=== PATIENT | female | born 1930 | race Caucasian/White ===

== ENCOUNTER 2017-04-06 09:30 | Emergency (ER) | payer MEDICARE, BC ==
[2017-04-06 09:40] VITALS: BP 137/70
--- NOTE | 2017-04-06 10:08 | ED ---
Neck Pain - HPI Summary HPI Summary: 86 yr old female with complaint left trapezius pain, and left side neck pain. Onset of pain was two days ago. She specifically recalls turning onto her left side while in bed and feeling pain in the left trapezius muscle. The pain is 5/ 10, worse with trying to turn her head, and look up. She states she had to sit up in order to turn herself back over onto her right side. She denies numbness , tingling in the arms. She states she is planning a dinner for 8 people this evening and she is very busy. - History of Current Complaint Chief Complaint: UCUpperExtremity Stated Complaint: LEFT SHOULDER PAIN Time Seen by Provider: 04/06/17 09:39 Hx Last Menstrual Period: n/a - Allergies/Home Medications Allergies/Adverse Reactions: Allergies Allergy/AdvReac Type Severity Reaction Status Date / Time Aspirin Allergy Anaphylatic Verified 04/06/17 09:40 Shock Home Medications: Home Medications Cholecalciferol [Vitamin D] 1,000 unit PO DAILY 04/06/17 [History Confirmed ] PMH/Surg Hx/FS Hx/Imm Hx Previously Healthy: Yes Cardiovascular History: Reports: Hx Hypertension - Surgical History Surgery Procedure, Year, and Place: spinal fusions X 2 in 2012 Infectious Disease History: No Infectious Disease History: Denies: Traveled Outside the [place] in Last 30 Days - Family History Known Family History: Positive: Hypertension Negative: Cardiac Disease, Diabetes - Social History Alcohol Use: None Substance Use Type: Reports: None Smoking Status (MU): Former Smoker Type: Cigarettes Review of Systems Constitutional: Negative Eyes: Negative Positive: Other - left trapezius pain, left side neck pain Negative: Weakness, Numbness All Other Systems Reviewed And Are Negative: Yes Physical Exam Triage Information Reviewed: Yes Vital Signs On Initial Exam: Initial Vitals Temp Pulse Resp BP Pulse Ox 98.5 F 86 16 137/70 98 04/06/17 09:33 04/06/17 09:33 04/06/17 09:33 04/06/17 09:33 04/06/17 09:33 Vital Signs Reviewed: Yes Appearance: Positive: Well-Appearing, No Pain Distress, Well-Nourished Skin: Positive: Warm, Skin Color Reflects Adequate Perfusion, Other - no rash Head/Face: Positive: Normal Head/Face Inspection Eyes: Positive: EOMI Neck: Positive: Tenderness @ - left trapezius muscle in the middle. Respiratory/Lung Sounds: Positive: Clear to Auscultation Cardiovascular: Positive: RRR. Negative: Murmur Musculoskeletal: Positive: Other - left shoulder full rang eof motion without any pain on palpation of the right left shoulder. Neurological: Positive: Normal, Sensory/Motor Intact, Alert, Oriented to Person Place, Time, CN Intact II-III, Normal Gait, Speech Normal Psychiatric: Positive: Normal - Sade Coma Scale Best Eye Response: 4 - Spontaneous Best Motor Response: 6 - Obeys Commands Best Verbal Response: 5 - Oriented Diagnostics - Vital Signs Vital Signs Temp Pulse Resp BP Pulse Ox 04/06/17 09:33 98.5 F 86 16 137/70 98 - Laboratory Lab Statement: Any lab studies that have been ordered have been reviewed, and results considered in the medical decision making process. - Radiology cervical spine Xray Interpretation: Positive (See Comments) - DJD Radiology Interpretation Completed By: Radiologist Neck Course/Dx - Course Course Of Treatment: 86 yr old female with DJD neck and wrye neck symptoms. She has alleve and takes this at home without problems. - Diagnoses Provider Diagnoses: DJD (degenerative joint disease) of cervical spine, Wryneck Discharge - Discharge Plan Condition: Good Disposition: HOME Patient Education Materials: Spasmodic Torticollis (ED), Neck Pain (ED) Referrals: Cuco Riddle MD [Primary Care Provider] - 3 Days
--- NOTE | 2017-04-06 10:21 | RAD ---
HISTORY: Left-sided pain COMPARISONS: February 08, 2013 VIEWS: 5, Frontal, lateral, open-mouth odontoid, and bilateral oblique views of the cervical spine. FINDINGS: The cervical spine is visualized from the skull base through C7-T1. ALIGNMENT: There is straightening with mild reversal of the normal cervical lordosis. VERTEBRAL BODIES: There is extensive anterolateral marginal osteophyte formation most pronounced at C3-C4, C4-C5, C5-C6, and C6-C7. JOINTS: There is extensive diffuse uncovertebral and facet osteoarthritis. 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 On the oblique views, there is mild diffuse left neural foraminal narrowing and moderate right neural foraminal narrowing INTERVERTEBRAL DISCS: There is diffuse loss of intervertebral disc height. SOFT TISSUE: The prevertebral soft tissues are normal. OTHER: The skull base is normal. The lung apices are clear. IMPRESSION: MODERATE TO ADVANCED DEGENERATIVE DISC DISEASE AND OSTEOARTHRITIS.
[2017-04-06] MEDS ORDERED: Cyclobenzaprine TAB* 10 MG PO ONE (10:43)
== END 2017-04-06 10:53 | disposition home or self-care (01) ==
LOC: UCCORT 09:30
DX: M47.9 Spondylosis, unspecified (principal); M43.6 Torticollis; Z87.891 Personal history of nicotine dependence; I10 Essential (primary) hypertension; Z88.6 Allergy status to analgesic agent
CPT/HCPCS: 72050; 99212; A9270-GY; G0463

== ENCOUNTER 2018-03-30 16:53 | Emergency (ER) | payer MEDICARE, BC ==
[2018-03-30 17:11] VITALS: BP 179/74
--- NOTE | 2018-03-30 17:15 | UC ---
General HPI - HPI Summary HPI Summary: Patient states that yesterday afternoon she had a sudden onset of feeling like something punched her in the left shoulder and arm area as well as along the sides of her neck/upper back. She describes the pain as being a combination of muscle and joint pain. She also notes that she has issues with chronic left knee pain and that feels a little worse now as well. She denies having any overuse. She denies any associated sweating nausea or shortness of breath. She denies any numbness or tingling to her arms or legs and she denies any known history of tick bite. She did take an Aleve last evening and she notes that gave her some temporary relief. She denies any history or heart or lung disease. She states that she followed up with Dr. Garsia in October of this year and had extensive routine labs all of which were normal. She had a second routine visit recently which was also normal. She denies coronary artery disease but admits to having had a stress test "1 million years ago" that was unremarkable. Her past medical history is significant for hypertension, high cholesterol, spinal stenosis. pt denies any chest pain or exertional changes.. Pt wonders if it is stress. - History of Current Complaint Hx Obtained From: Patient Hx Last Menstrual Period: n/a Onset/Duration: Sudden Onset Timing: Constant Aggravating: nothing Associated Signs & Symptoms: Positive: Back Pain - upper. Negative: Nausea, SOB <Loan Lovett - Last Filed: 03/30/18 17:57> <oRgerio Liu - Last Filed: 03/30/18 20:40> - History of Current Complaint Stated Complaint: BODY ACHES Time Seen by Provider: 03/30/18 17:08 - Allergy/Home Medications Allergies/Adverse Reactions: Allergies Allergy/AdvReac Type Severity Reaction Status Date / Time aspirin Allergy Anaphylatic Verified 03/30/18 17:14 Shock PMH/Surg Hx/FS Hx/Imm Hx - Additional Past Medical History Additional PMH: spinal stenosis Endocrine History: Dyslipidemia Cardiovascular History: Hypertension - Surgical History Surgical History: Yes Surgery Procedure, Year, and Place: spinal fusions X 2 in 2012 - Family History Known Family History: Positive: Hypertension Negative: Cardiac Disease, Diabetes - Social History Occupation: Retired Lives: Alone Alcohol Use: None Substance Use Type: None Smoking Status (MU): Former Smoker Type: Cigarettes When Did the Patient Quit Smoking/Using Tobacco: 25 YRS AGO - Immunization History Most Recent Tetanus Shot: 2008 Vaccination Up to Date: Yes <Loan Lovett - Last Filed: 03/30/18 17:57> Review of Systems Constitutional: Negative Skin: Negative Eyes: Negative ENT: Negative Respiratory: Negative Cardiovascular: Negative Gastrointestinal: Negative Genitourinary: Negative Motor: Negative Neurovascular: Negative Musculoskeletal: Arthralgia, Other: - acute pain LUE, neck, upper back Neurological: Negative Psychological: Negative Is Patient Immunocompromised?: No All Other Systems Reviewed And Are Negative: Yes <Loan Lovett - Last Filed: 03/30/18 17:57> Physical Exam Triage Information Reviewed: Yes Appearance: Well-Appearing Vital Signs Reviewed: Yes Eyes: Positive: Conjunctiva Clear ENT: Positive: Pharynx normal, TMs normal. Negative: Nasal congestion, Nasal drainage Neck: Positive: Supple, No Lymphadenopathy, Other: - mildly tender L trapezius. No jvd. spine non tender.. Negative: Nuchal Rigidity Respiratory: Positive: Chest non-tender, Lungs clear, Normal breath sounds Cardiovascular: Positive: RRR, No Murmur, Pulses Normal Abdomen Description: Positive: Nontender, No Organomegaly, Soft Bowel Sounds: Positive: Present Musculoskeletal: Positive: ROM Intact, Other: - tender L bicep/tricep. Back is non tender. Large joints with no swelling or tenderness. Neurological: Positive: Alert, Other: - CN 2-12 grossly intact. s/v/m intact x4. Psychological: Positive: Normal Response To Family, Age Appropriate Behavior Skin Exam: Normal Skin: Negative: rashes <Loan Lovett - Last Filed: 03/30/18 17:57> Vital Signs: Initial Vital Signs Temp 100.3 F 03/30/18 17:05 Pulse 96 03/30/18 17:05 Resp 16 03/30/18 17:05 BP 179/74 03/30/18 17:05 Pulse Ox 97 03/30/18 17:05 <Rogerio Liu - Last Filed: 03/30/18 20:40> Diagnostics - EKG Cardiac Rate: NL Cardiac Rhythm: Sinus: Normal Ectopy: None ST Segment: Non-Specific - I,AVL. Q waves III/AVF <Loan Lovett - Last Filed: 03/30/18 17:57> Course/Dx - Course Course Of Treatment: no asa here, hx anaphylactic reaction. ems refused despite risk of worsening, disability, mva . pt a&ox3 and able to make decisions thus I must respect she will drive self to ER. leaving ama. [facility] ER called, report given to Wes Magallanes. advised of abnormal EKG and need to r/ o ACS. also advised EMS refused. Differential: ACS, musculoskeletal pain, doubt Lyme or dissection but both are possible. - Differential Dx - Multi-Symptom Provider Diagnoses: Acute pain neck/upper back and L arm. r/o acs <Loan Lovett - Last Filed: 03/30/18 17:57> Discharge - Sign-Out/Discharge Documenting (check all that apply): Discharge/Admit/Transfer - Billing Disposition and Condition Condition: STABLE Disposition: Against Medical Advice <Loan Lovett - Last Filed: 03/30/18 17:57> - Billing Disposition and Condition Condition: STABLE Disposition: Against Medical Advice <Rogerio Liu - Last Filed: 03/30/18 20:40> - Discharge Plan Condition: Stable Disposition: AGAINST MEDICAL ADVICE Referrals: Cuco Riddle MD [Primary Care Provider] - Additional Instructions: LEAVE HERE AND GO DIRECTLY TO THE [facility] DISCUSSED
== END 2018-03-30 18:00 | disposition left against medical advice (07) ==
LOC: UCCORT 16:53
DX: M54.6 Pain in thoracic spine (principal); M54.2 Cervicalgia; M79.602 Pain in left arm; I10 Essential (primary) hypertension; Z87.891 Personal history of nicotine dependence; Z88.6 Allergy status to analgesic agent
CPT/HCPCS: 93005; 99212; G0463

== ENCOUNTER 2018-08-14 08:11 | Emergency (ER) | payer MEDICARE, BC ==
[2018-08-14 08:34] VITALS: BP 151/60
--- NOTE | 2018-08-14 08:34 | UC ---
Back Pain HPI - HPI Summary HPI Summary: 87 year old with possible muscle strain. Left sided low anterior rib/ chest pain off/on started last week. Pt had done some lifting 24 hrs. before onset of sx. Pain worsens when pressure is applied, and with twisting. Pain improved during the week, pain returned last night; pt had been doing light lifting, twisting during the day. No foot drop. No numbness. No chest pain. no GERD. No ECHOLS. No cough. No lightheadedness. Pain worsened with twisting and after more activity. No h/o cardiac issues. No previous DVT or PE . No SOB but sometimes with deep inspiration has had some left rib / muscle spasms / tightness. She is concerned for muscle relaxer but wants to make sure she is fine as she had to go to a play in [place] [employer] tomorrow and wants to make sure she can go . [ End ] - History of Current Complaint Stated Complaint: POSSIBLE MUSCLE STRAIN Time Seen by Provider: 08/14/18 08:32 Hx Obtained From: Patient Hx Last Menstrual Period: n/a Onset/Duration: Gradual Onset Timing: Constant Severity Initially: Moderate Severity Currently: None Aggravating Factor(s): Movement Alleviating Factor(s): Rest - Allergies/Home Medications Allergies/Adverse Reactions: Allergies Allergy/AdvReac Type Severity Reaction Status Date / Time aspirin Allergy Anaphylatic Verified 08/14/18 08:18 Shock PMH/Surg Hx/FS Hx/Imm Hx Previously Healthy: Yes Endocrine History: Dyslipidemia Cardiovascular History: Hypertension - Surgical History Surgical History: Yes Surgery Procedure, Year, and Place: spinal fusions X 2 in 2011 - Family History Known Family History: Positive: Hypertension Negative: Cardiac Disease, Diabetes - Social History Occupation: Retired Lives: With Family Alcohol Use: None Substance Use Type: None Smoking Status (MU): Former Smoker Type: Cigarettes When Did the Patient Quit Smoking/Using Tobacco: 25 YRS AGO - Immunization History Most Recent Tetanus Shot: 2008 Vaccination Up to Date: Yes Review of Systems Musculoskeletal: Arthralgia Is Patient Immunocompromised?: No All Other Systems Reviewed And Are Negative: Yes Physical Exam Triage Information Reviewed: Yes Appearance: Well-Appearing, No Pain Distress, Well-Nourished Eye Exam: Normal ENT Exam: Normal Dental Exam: Normal Neck exam: Normal Neck: Positive: 1 Respiratory Exam: Normal Cardiovascular Exam: Normal Abdominal Exam: Normal Musculoskeletal Exam: Normal Neurological Exam: Normal Psychological Exam: Normal Skin Exam: Normal Skin: Positive: rashes - under left breast macular beefy red rash. no vesicular lesions. sensitivity left lower ribs. Back Pain Course/Dx - Course Course Of Treatment: She is here to make sure she is fine and it is more of muscle spasm which is appears to be. no pain that radiates to back. no DVT/PE/ NV concerns at this time. Discussed heat/APAP and she is requesting muscle relaxer if her Sx return. She is aware of SE like drowsiness/dizziness/falls and will tro to not take or just take in the PM if can not sleep from the spasms which did wake up pt at 4 am this morning. - Differential Dx/Diagnosis Differential Diagnosis/HQI/PQRI: Herniated Disc, Strain, Sprain Provider Diagnoses: Muscle spasm. Candidiasis under left breast Discharge - Sign-Out/Discharge Documenting (check all that apply): Patient Departure All imaging exams completed and their final reports reviewed: No Studies - Discharge Plan Condition: Good Disposition: HOME Prescriptions: Cyclobenzaprine (NF) [Cyclobenzaprine 5 MG (NF)] 5 mg PO BID #10 tab Nystatin CREAM* 1 applic TOPICAL BID 7 Days #1 tube Patient Education Materials: Muscle Spasm (ED), Skin Yeast Infection (ED) Referrals: Cuco Riddle MD [Primary Care Provider] - 3 Days - Billing Disposition and Condition Condition: GOOD Disposition: Home
== END 2018-08-14 09:03 | disposition home or self-care (01) ==
LOC: UCCORT 08:11
DX: M62.838 Other muscle spasm (principal); I10 Essential (primary) hypertension; Z87.891 Personal history of nicotine dependence; Z88.8 Allergy status to other drugs, medicaments and biological substances
CPT/HCPCS: 99212; G0463